=== PATIENT | male | born 1985 | race Caucasian/White ===

== ENCOUNTER 2017-10-14 22:54 | Emergency (ER) | payer MEDICAID ==
[~2017-10-14] VITALS: Ht 177.8 cm; Wt 68.0 kg
[2017-10-15 00:05] VITALS: BP 124/73
--- NOTE | 2017-10-15 00:05 | NUR ---
PT AMBULATORY TO ER BED 6. PT BIB FAMILY C/O OF "FLU LIKE SYMPTOMS" X 4 DAYS. PT PLACED ON LIQUOR BLENDER. VSS/RESP EVEN UNLABORED/NAD NOTED/SKIN WARM AND DRY/DENIES N-V-D/AFEBRILE/AOX4. AWAITING MD MAI.
--- NOTE | 2017-10-15 00:24 | NUR ---
XRAY AT BEDSIDE.
== END 2017-10-15 01:58 | disposition home or self-care (01) ==
LOC: ER 22:59
DX: J06.9 Acute upper respiratory infection, unspecified (principal)
CPT/HCPCS: 71045-TC; A4606; Z7610